=== PATIENT | male | born 1940 | race Caucasian/White ===

== ENCOUNTER 2017-07-26 20:44 | Inpatient (IN) | payer MEDICARE, BC ==
[~2017-07-26] VITALS: Ht 172.7 cm; Wt 81.3 kg
[2017-07-26 21:03] LABS: BASO # 0.1 (0.0-0.2); BASO % 0.6 % (0.0-2.0); EOS # 0.1 (0.0-0.7); EOS % 1.6 % (0-4.0); HEMATOCRIT 40.2 % (42.0-52.0); LYMPH # 3.1 (1.2-3.4); LYMPH % 38.3 % (20.0-51.0); MEAN CELL VOLUME 97 fl (80.0-100.0); MEAN CORPUSCULAR HEMOGLOBIN 34 pg (27.0-31.0); MEAN CORPUSCULAR HGB CONC 35 g/dl (33.0-37.0); MEAN PLATELET VOLUME 8.8 fl (7.4-10.4); MONO # 0.8 (0.1-0.6); MONO % 9.3 % (1.7-9.3); PLATELET COUNT 140 K/mm3 (130-400); RED BLOOD COUNT 4.13 M/mm3 (4.20-5.60); WHITE BLOOD COUNT 8.1 K/mm3 (4.8-10.8)
[2017-07-26 21:13] LABS: ADJUSTED CALCIUM 8.5 mg/dL (8.4-10.2); ALBUMIN 4.7 gm/dL (3.5-5.0); BILIRUBIN,TOTAL 0.5 mg/dL (0.0-1.0); CALCIUM 9.1 mg/dL (8.4-10.2); CREATININE, serum 0.74 mg/dL (0.66-1.25); POTASSIUM 4.1 mmol/L (3.4-5.0); TOTAL PROTEIN 7.4 gm/dL (6.4-8.2)
[2017-07-26 21:13] LABS: PH 5 (5-8); SQUAMOUS EPITHELIAL None Seen /hpf; URINE APPEARANCE Clear; URINE BACTERIA None Seen /hpf; URINE BILIRUBIN Negative (NEGATIVE); URINE BLOOD Negative (NEGATIVE); URINE COLOR Straw; URINE GLUCOSE Negative (NEGATIVE); URINE KETONE Negative (NEGATIVE); URINE LEUKOCYTE ESTERASE Negative (NEGATIVE); URINE PROTEIN(semi-quant) Negative (NEGATIVE); URINE RBC None Seen /hpf; URINE UROBILINOGEN Negative (NEGATIVE); URINE WBC 0-2 /hpf
[2017-07-26 21:16] LABS: COLLECTION METHOD CLEAN CATCH
[2017-07-26] MEDS ORDERED: ZOCOR 40MG40 MG PO (21:54)
[2017-07-26] MEDS ORDERED: INDERAL80 MG PO (22:43)
[2017-07-26] MEDS ORDERED: PRINIVIL10 MG PO (22:44)
[2017-07-26] MEDS ORDERED: ASPIRIN 81M81 MG/TA2 PO (22:44)
[2017-07-26] MEDS ORDERED: ADALAT CC30 MG PO (22:45)
[2017-07-26] MEDS ORDERED: XALATAN EYE DROPS OD (23:05)
[2017-07-27] VITALS (12 sets, daily range): BP systolic 113–158; BP diastolic 49–76; PULSE 58–73; TEMP 97.2–99.6
[2017-07-27 05:30] LABS: BASO % 0.5 % (0.0-2.0); EOS # 0.1 (0.0-0.7); EOS % 1.7 % (0-4.0); GRAN # 3.3 (1.4-6.5); GRAN % 51.8 % (42.2-75.2); HEMATOCRIT 37.5 % (42.0-52.0); HEMOGLOBIN 13.1 g/dl (13.5-18.0); LYMPH # 2.2 (1.2-3.4); LYMPH % 34.5 % (20.0-51.0); MEAN CELL VOLUME 98 fl (80.0-100.0); MEAN CORPUSCULAR HEMOGLOBIN 34 pg (27.0-31.0); MEAN CORPUSCULAR HGB CONC 35 g/dl (33.0-37.0); MONO # 0.7 (0.1-0.6); MONO % 10.9 % (1.7-9.3); PLATELET COUNT 151 K/mm3 (130-400); RED BLOOD COUNT 3.84 M/mm3 (4.20-5.60); WHITE BLOOD COUNT 6.4 K/mm3 (4.8-10.8)
[2017-07-27 05:43] LABS: PARTIAL THROMBOPLASTIN TIME 26.3 SECONDS (26.0-37.0)
[2017-07-27 05:44] LABS: CALCIUM 9.1 mg/dL (8.4-10.2); CREATININE, serum 0.75 mg/dL (0.66-1.25); MAGNESIUM 1.9 mg/dL (1.6-2.3); POTASSIUM 3.9 mmol/L (3.4-5.0)
[2017-07-28 04:29] VITALS: BP 113/47; PULSE 65; TEMP 98.3
[2017-07-28 06:45] VITALS: BP 131/62; PULSE 64; TEMP 98.4
[2017-07-28 07:47] VITALS: BP 156/75; PULSE 64; TEMP 97.4
[2017-07-28 10:39] VITALS: BP 130/70; PULSE 65; TEMP 98
[2017-07-28 11:41] VITALS: BP 146/81; PULSE 85; TEMP 97.4
[2017-07-28] MEDS ORDERED: FOLIC ACID 11 MG/TA1 PO (16:19)
[2017-07-28] MEDS ORDERED: NATURE'S BLEND100 M2 PO (16:19)
[2017-07-28] MEDS ORDERED: THERA1 TAB PO (16:20)
[2017-07-28] MEDS ORDERED: CYANOCOBAL1000 MCG/1 IM (16:26)
== END 2017-07-28 17:30 | disposition home or self-care (01) | DRG 641 ==
LOC: COL.ER 20:44 → MEDICAL 22:48
PROVIDERS: Emergency Medicine; Nurse Practitioner
DX: E87.1 Hypo-osmolality and hyponatremia (principal); F10.229 Alcohol dependence with intoxication, unspecified; Y90.7 Blood alcohol level of 200-239 mg/100 ml; Z66 Do not resuscitate; E78.5 Hyperlipidemia, unspecified; I10 Essential (primary) hypertension; G62.9 Polyneuropathy, unspecified; Z95.2 Presence of prosthetic heart valve; Z95.1 Presence of aortocoronary bypass graft
CPT/HCPCS: 99222-AI; A9585; J1644; J3420; J7030